=== PATIENT | female | born 1970 | race African-American/Black ===

== ENCOUNTER 2016-11-08 23:44 | Emergency (ER) | payer MEDICAID, OTHER ==
[~2016-11-08] VITALS: Ht 170.2 cm; Wt 64.0 kg
[2016-11-08 23:50] VITALS: BP 168/106
== END 2016-11-09 00:20 | disposition left against medical advice (07) ==
LOC: ER 11-09
DX: R10.9 Unspecified abdominal pain (principal); Z53.21 Procedure and treatment not carried out due to patient leaving prior to being seen by health care provider